=== PATIENT | male | born 1985 | race Caucasian/White ===

== ENCOUNTER → 2024-08-01 17:53 | Outpatient (CLI) | payer OTHER, SELFPAY ==
--- NOTE | 2024-08-01 17:55 | DI.RAD.S_ITS ---
PROCEDURE: XR SHOULDER LT MIN 2V INDICATIONS: L shoulder injury TECHNIQUE: 3 views of the shoulder were acquired. COMPARISON: None. FINDINGS: Bones: No acute displaced fracture. CC interval measures 17 mm. Superior positioning of the clavicle in relation to the acromion. Soft tissues: No suspicious calcifications. IMPRESSION: Acromioclavicular separation injury. Superior positioning of the clavicle in relation to the acromion. Dictated by: Darrel Diaz M.D. on 08/01/2024 at 17:12 Approved by: Darrel Diaz M.D. on 08/01/2024 at 17:13
== END ==
PROVIDERS: PCP Internal Medicine; Referring Provider Physician Assistant Medical; Visit Provider Physician Assistant Medical
DX: S49.82XA Other specified injuries of left shoulder and upper arm, initial encounter (principal); X58.XXXA Exposure to other specified factors, initial encounter
CPT/HCPCS: 73030

== ENCOUNTER → 2024-08-06 11:41 | Outpatient (CLI) | payer OTHER, SELFPAY ==
--- NOTE | 2024-08-06 11:43 | DI.MRI.S_ITS ---
PROCEDURE: MR SHOULDER LT WO CON INDICATIONS: DISLOCATION OF L ACROMICOCLAVICULAR JOINT TECHNIQUE: Noncontrast oblique coronal T2 fast spin echo with fat saturation, oblique sagittal T1 spin echo and T2 fast spin echo with fat saturation, axial T1 spin echo and T2 fast spin echo with fat saturation through the shoulder. COMPARISON: [facility], CR, XR SHOULDER LT MIN 2V, 08/01/2024, 17:57. FINDINGS: Image quality: Excellent. Rotator cuff: The supraspinatus, infraspinatus, teres minor, and subscapularis tendons are intact. Rotator cuff musculature is normal in signal intensity and bulk. Bones and bursae: Superior displacement of the distal clavicle relative to the acromion, consistent with Adams type 3 acromioclavicular separation injury. There is disruption of the acromioclavicular ligaments with surrounding soft tissue edema and fluid. There is complete midsubstance tearing of the coracohumeral ligament. Proximal humerus is intact. Subchondral cystic changes are seen at the anterior inferior labrum with suspected overlying cartilage loss. Glenohumeral cartilage is otherwise maintained. No significant glenohumeral effusion. Capsule and soft tissues: Edema in the lateral portion of the trapezius muscle is consistent with a muscle strain. Low-grade strain of the anterior belly of the deltoid muscle. Suspected chronic nondisplaced tearing at the anterior inferior labrum. Proximal biceps long head tendon is intact. Glenohumeral ligaments appear to be intact. IMPRESSION: 1. Acromioclavicular separation injury with tearing of the acromioclavicular and coracoclavicular ligaments. 2. Grade 1-2 strain of the lateral trapezius muscle. Grade 1 sprain of the anterior belly of the deltoid muscle. 3. Suspected chronic nondisplaced tearing of the anterior inferior labrum with adjacent subchondral cystic changes and possible overlying cartilage loss at the anterior inferior glenoid. 4. No significant rotator cuff tendon tearing. Proximal biceps long head tendon is intact. Approved by: Bhavin Cortez M.D. on 08/06/2024 at 14:05
== END ==
LOC: MRI 11:42
PROVIDERS: PCP Internal Medicine; Referring Provider Orthopaedic Surgery; Visit Provider Orthopaedic Surgery
DX: S43.102A Unspecified dislocation of left acromioclavicular joint, initial encounter (principal); S43.52XA Sprain of left acromioclavicular joint, initial encounter; S46.812A Strain of other muscles, fascia and tendons at shoulder and upper arm level, left arm, initial encounter; S43.492A Other sprain of left shoulder joint, initial encounter; X58.XXXA Exposure to other specified factors, initial encounter
CPT/HCPCS: 73221

== ENCOUNTER → 2024-11-27 07:35 | Outpatient (CLI) | payer OTHER, SELFPAY ==
[2024-11-27 08:04] LABS: Hematocrit 41.3 % (41-53); Hemoglobin 14.2 g/dL (13.5-17.5); Mean Corpuscular HGB Conc 34.3 % (30-36); Mean Corpuscular Hemoglobin 31.4 PG (26-34); Mean Corpuscular Volume 91.6 fL (80-100); Platelet Count 285 X10^3/uL (150-400); Red Blood Cell Count 4.51 X10^6/uL (4.5-5.9); Red Cell Distribution Width 13.5 % (11.6-14.8); White Blood Cell Count 6.5 X10^3/uL (4.5-11.0)
[2024-11-27 08:10] LABS: Hemoglobin A1C% w Est Avg Glu 4.9 % (4.0-6.0)
[2024-11-27 08:19] LABS: Cholesterol 218 mg/dL (140-199); HEMOLYSIS < 15 (0-50); Triglycerides 116 mg/dL (35-150)
[2024-11-27 08:20] LABS: Alanine Aminotransferase 30 IU/L (<50); Albumin 4.9 g/dL (3.5-5.0); Albumin Globulin Ratio 1.8 (1.0-2.8); Alkaline Phosphatase 43 U/L (38-126); Aspartate Aminotransferase 34 IU/L (17-59); BUN Creatinine Ratio 14.6 (6-22); Bilirubin Total 0.6 mg/dL (0.2-1.3); Blood Urea Nitrogen 14 mg/dL (9-20); C-Reactive Protein Quant < 0.5 mg/dL (<1.0); Calcium 9.7 mg/dL (8.4-10.2); Carbon Dioxide 27 mmol/L (22-32); Chloride 102 mmol/L (98-107); Estimated Glomerular Filt Rate > 60 mL/min (>60); Globulin 2.7 g/dL (1.7-4.1); Glucose 97 mg/dL (70-99); HDL Cholesterol 76 mg/dL (40-60); LDL Cholesterol Calculated 119 mg/dL (<100); Potassium 4.5 mmol/L (3.4-5.1); Sodium 139 mmol/L (137-145); Total Protein 7.6 g/dL (6.3-8.2)
[2024-11-27 08:44] LABS: TSH w/ Reflex to FT4 2.54 uIU/mL (0.47-4.68)
[2024-11-27 09:02] LABS: HIV 1 & 2 Ab/Ag 4th Gen Combo NEGATIVE (NEGATIVE); Hep C Virus Ab w/Reflex Quant NEGATIVE s/c (NEGATIVE)
== END ==
LOC: LAB 07:36
PROVIDERS: PCP Family Medicine; Referring Provider Family Medicine; Visit Provider Family Medicine
DX: Z13.9 Encounter for screening, unspecified (principal); Z13.220 Encounter for screening for lipoid disorders; Z13.29 Encounter for screening for other suspected endocrine disorder; Z13.1 Encounter for screening for diabetes mellitus; Z13.228 Encounter for screening for other metabolic disorders; R19.7 Diarrhea, unspecified
CPT/HCPCS: 80053; 80061; 83036; 83516; 83993; 84443; 85027; 86140; 86803; 87177; 87389